=== PATIENT | female | born 1960 | race Caucasian/White ===

== ENCOUNTER 2020-07-25 07:57 | Outpatient (REF) | payer BC, SELFPAY ==
--- NOTE | 2020-07-27 13:22 | MHC.AU.P13 ---
Adult Audiological Evaluation Date of Visit: 07/25/20 Lining Finisher Used: Not Applicable Reason for Appointment: Audiologic re-evaluation due to perceived decrease in hearing ability. Cerumen partially occluding canals for both ears removed without complication prior to testing today. Previous Hearing Test Results: 11/10/2018 [facility] Bilateral severe to profound sensorineural hearing loss with the left ear being poorer at 8000 Hz. Medical History: Medical History: Cancer Medication List: Anastrazolt, Vitamin D Hearing Instrument History- Right Ear: Director Of Donor Relations: Phonak Model: Bitfury Groupeo M 50-13T Serial Number: [id number] Battery Size: 13 Repair Warranty: 04/04/2022 Loss and Damage Warranty: 04/04/2022 Dispensed By: [facility] Date of Fittin01/26/2019 Hearing Instrument History- Left Ear: Director Of Donor Relations: Straatum Processwareak Model: Bitfury Groupeo M 50-13T Serial Number: [id number] Battery Size: 13 Warranty: 04/04/2022 Loss and Damage Warranty: 04/04/2022 Dispensed By: [facility] Date of Fittin01/26/2019 Otoscopy: Right Ear: Unremarkable Left Ear: Unremarkable Tympanometry: Tympanometry performed due to: Right Ear: Not performed at today's visit Left Ear: Not performed at today's visit Hearing Evaluation: Transducer(s) Used: Insert Earphones Bone Conduction Method: Conventional Audiometry Stimuli Used: Pure Tones Right Ear: Description of Hearing: Severe sensorineural hearing loss 250-8000 Hz Left Ear: Description of Hearing: Severe sensorineural hearing loss at 250-4000 Hz with a profound loss at 8000 Hz Speech Recognition Threshold (SRT): Method Used: Monitored Live Voice Stimuli Used: Spondee Words Right Ear: 75 dB HL Left Ear: 80 dB HL Word Discrimination: Method: Monitored Live Voice Word Lists Used: NU-6 Right Ear: 64% at 100 dB HL Left Ear: 68% at 105 dB HL Comparison: Compared to most recent evaluation: Hearing thresholds have decreased 5-15 dB with the decrease being greater for the left ear. Recommendations: Audiological re-evaluation in one year. Hearing aid(s) reprogrammed with updated test results. Diagnosis: Primary Diagnosis: H90.3 Bilateral Sensorineural Hearing Loss Services Performed: Comprehensive Audiological Evaluation (CPT 12455) Signature: Provider: Cassidy Mackey, [facility]
== END 2020-07-25 07:58 | disposition home or self-care (01) ==
LOC: HO.SH 07:57
PROVIDERS: Visit Provider Internal Medicine
DX: H90.3 Sensorineural hearing loss, bilateral (principal)
CPT/HCPCS: 92557

== ENCOUNTER 2020-07-25 09:09 | Outpatient (REF) | payer SELFPAY | END 2020-07-25 09:10 | disposition home or self-care (01) | LOC: HO.HAP 09:09 | PROVIDERS: Visit Provider Internal Medicine | DX: Z46.1 Encounter for fitting and adjustment of hearing aid (principal); H90.3 Sensorineural hearing loss, bilateral | CPT/HCPCS: 92700 ==

== ENCOUNTER 2020-08-22 08:08 | Outpatient (REF) | payer SELFPAY ==
--- NOTE | 2020-08-22 08:59 | MHC.AU.P13 ---
Hearing Instrument Problem Date of Visit: 08/22/20 Right Ear: Hitting Coach: Phonak Model: Whelseeo M 50-13T Serial Number: [id number] Repair Warranty: 04/04/2022 Loss and Damage Warranty: 04/04/2022 Battery Size: 13 Color: [place] Conveyor System Dispatcher: #2 Ultra Power Type of Mold: Phonak C-Shell Skeleton Lock Slim Tip [id number] Type of Wax Guard: CeruStop Left Ear: Hitting Coach: Phonak Model: Audeo M 50-13T Serial Number: [id number] RepairWarranty: 04/04/2022 Loss and Damage Warranty: 04/04/2022 Battery Size: 13 Color: [place] Conveyor System Dispatcher: #2 Ultra Power Type of Mold: Phonak C-Shell Skeleton Lock Type of Wax Guard: CeruStop Follow-Up Summary: Patient dropped off left aid stating cutting in and out on phone and when taking on/off mask - could not replicate in office - sent to [employer] for repair/check. Patient's case in hearing aid repair drawer until aid comes back. Recommendations: Recommendations: Patient will be contacted when materials have arrived. Signature: Provider: PHOEBE Patterson-HIS
== END 2020-08-22 08:09 | disposition home or self-care (01) ==
LOC: HO.HAP 08:08
PROVIDERS: Visit Provider Internal Medicine
DX: Z13.89 Encounter for screening for other disorder (principal)

== ENCOUNTER 2020-09-05 08:06 | Outpatient (REF) | payer SELFPAY | END 2020-09-05 08:07 | disposition home or self-care (01) | LOC: HO.HAP 08:06 | PROVIDERS: Visit Provider Internal Medicine | DX: Z13.89 Encounter for screening for other disorder (principal) ==

== ENCOUNTER 2021-04-02 12:52 | Outpatient (REF) | payer SELFPAY ==
--- NOTE | 2021-04-02 13:19 | MHC.AU.HFU ---
Hearing Instrument Follow-Up- Binaural Date of Visit: 04/02/21 Right Ear: Service Advisor: Phonak Model: Audeo M 50-13T Serial Number: [id number] Repair Warranty: 04/04/2022 Battery Size: 13 Color: [place] Marble Ceiling Installer: #2 Ultra Power Type of Mold: Phonak C-Shell Skeleton Lock Slim Tip #[id number] remake warranty 07/24/2021 Type of Wax Guard: CeruStop Dispensed By: [facility] Date of Fittin01/26/2019 Left Ear: Service Advisor: Phonak Model: Audeo M 50-13T Serial Number: [id number] Repair Warranty: 04/04/2022 Battery Size: 13 Color: [place] Marble Ceiling Installer: #2 Ultra Power Type of Mold: Phonak C-Shell Skeleton Lock [id number] Type of Wax Guard: CeruStop Dispensed By: [facility] Date of Fittin01/26/2019 Follow-Up Summary: Fit the new right skeleton c-shell using the scan on file. Patient reports comfortable fit. Patient reports sounds are muffled. Cleaned both aids, microphones, contacts, and changed wax guard for the left aid. Both amplifying well. Otoscopy shows mostly occluding cerumen in the left ear removed without complication today be NArti Ochoa. Patient changed batteries for both aids and reports improved sound quality. Paid $85.00 for new c-shell. Recommendations: Hearing instrument follow-up or maintenance as needed. Please contact our clinic with any questions or concerns. Diagnosis Code(s): Primary Diagnosis: H90.3 Bilateral Sensorineural Hearing Loss Services Performed: Earmold (Quantity): 1 Signature: Gloria Benjamin [facility] Provider:
== END 2021-04-02 12:53 | disposition home or self-care (01) ==
LOC: HO.HAP 12:52
PROVIDERS: Visit Provider Internal Medicine
DX: Z46.1 Encounter for fitting and adjustment of hearing aid (principal); H90.3 Sensorineural hearing loss, bilateral
CPT/HCPCS: V5264

== ENCOUNTER 2021-09-20 08:26 | Outpatient (REF) | payer SELFPAY | END 2021-09-20 08:27 | disposition home or self-care (01) | LOC: HO.HAP 08:26 | PROVIDERS: Visit Provider Internal Medicine | DX: Z46.1 Encounter for fitting and adjustment of hearing aid (principal); H90.3 Sensorineural hearing loss, bilateral | CPT/HCPCS: 92700 ==

== ENCOUNTER 2022-03-26 07:56 | Outpatient (REF) | payer SELFPAY | END 2022-03-26 07:57 | disposition home or self-care (01) | LOC: HO.HAP 07:56 | PROVIDERS: Visit Provider Internal Medicine | DX: Z46.1 Encounter for fitting and adjustment of hearing aid (principal); H90.3 Sensorineural hearing loss, bilateral | CPT/HCPCS: V5267 ==

== ENCOUNTER 2023-02-12 08:11 | Outpatient (REF) | payer SELFPAY ==
--- NOTE | 2023-02-12 08:54 | MHC.AU.HA3 ---
Hearing Instrument Follow-Up- Binaural Date of Visit: 02/12/23 Right Ear: [place], Model, Color, Serial Number: Mk Brennan M50-13T SN: [id number] Color: [place] Farmer [employer] Grazier Repair Warranty: 04/04/2022 [employer] Loss and Damage Warranty: 04/04/2022 Battery Size: 13 Tobacco Packer/Slim Tube: #2 Ultra Power Earmold/Dome/CShell/SlimTip:Phonak C-Shell Skeleton Lock Slim Tip SN: [id number] Kellie: 07/24/2021 Type of Wax Guard: CeruStop Dispensed By: [facility] Date of Fittin01/26/2019 Left Ear: [place], Model, Color, Serial Number: Mk Brennan M50-13T SN: [id number] Color: [place] Farmer [employer] Grazier Repair Warranty: 04/04/2022 [employer] Loss and Damage Warranty: 04/04/2022 Battery Size: 13 Tobacco Packer/Slim Tube: #2 Ultra Power Earmold/Dome/CShell/SlimTip: Phonak C-Shell Skeleton Lock Slim Tip SN: [id number] Kellie: 07/24/2021 Type of Wax Guard: CeruStop Dispensed By: [facility] Date of Fittin01/26/2019 Follow-Up Summary: Socorro reported that her right hearing aid is not working. Prior to it not working, she reported a crackling/static noise in the hearing aid. Listening check revealed hearing aid extremely weak even after cleaning. Replaced ton container shipper with significant improvement noted in amplification. However, Socorro has a c-shell; therefore, ton container shipper and c-shell will need to be sent to [employer] to replace the ton container shipper. Quoted $150.00. Socorro is going to the [facility] for the weekend for her daughter's wedding. She was agreeable to using a 2P ton container shipper with a power dome temporarily. Reran feedback customer development manager on the right side with the power dome. Some decrease in amplification; however, Socorro reported it was still good sound quality and will get her through the weekend. Practiced insertion/removal. Sent Socorro's ton container shipper and c-shell to [employer] for repair. Recommendations: Patient will be contacted when materials have arrived - Will need appointment to replace ton container shipper/c-shell on hearing aid. Will owe $150.00 for ton container shipper replacement at poultry picking machine tender Diagnosis Code(s): Primary Diagnosis: H90.3 Bilateral Sensorineural Hearing Loss Signature: Provider: Alejandro Galvan, [facility]
== END 2023-02-12 08:12 | disposition home or self-care (01) ==
LOC: HO.HAP 08:11
PROVIDERS: Visit Provider Internal Medicine
DX: Z13.89 Encounter for screening for other disorder (principal)

== ENCOUNTER 2023-03-26 07:50 | Outpatient (REF) | payer SELFPAY | END 2023-03-26 07:51 | disposition home or self-care (01) | LOC: HO.HAP 07:50 | PROVIDERS: Visit Provider Internal Medicine | DX: Z46.1 Encounter for fitting and adjustment of hearing aid (principal); H90.3 Sensorineural hearing loss, bilateral | CPT/HCPCS: V5299 ==

== ENCOUNTER 2023-06-10 07:58 | Outpatient (REF) | payer SELFPAY ==
--- NOTE | 2023-06-10 14:07 | MHC.AU.HA3 ---
Hearing Instrument Follow-Up- Binaural Date of Visit: 06/10/23 Right Ear: Make, Model, Color, Serial Number: Mk Brennan M50-13T SN: [id number] Color: [place] Intervention Specialist Repair Warranty: 04/04/2022 Intervention Specialist Loss and Damage Warranty: 04/04/2022 [facility] Service Plan: Battery Size: 13 Travel Nurse/Slim Tube: #2 Ultra Power Earmold/Dome/CShell/SlimTip:Phonak C-Shell Skeleton Lock Slim Tip SN: [id number] Kellie: 05/25/2023 Type of Wax Guard: CeruStop Dispensed By: [facility] Date of Fittin01/26/2019 Left Ear: Make, Model, Color, Serial Number: Mk Brennan M50-13T SN: [id number] Color: [place] Intervention Specialist Repair Warranty: 04/04/2022 Intervention Specialist Loss and Damage Warranty: 04/04/2022 [facility] Service Plan: Battery Size: 13 Travel Nurse/Slim Tube: #2 Ultra Power Earmold/Dome/CShell/SlimTip: Phonak C-Shell Skeleton Lock Slim Tip SN: [id number] Kellie: 07/24/2021 Type of Wax Guard: CeruStop Dispensed By: [facility] Date of Fittin01/26/2019 Follow-Up Summary: Socorro reports overall dissatisfaction with her hearing aids. She states she has been quite disappointed by them and feels they are the worst hearing aids she's ever had. She currently experiences a muffled quality to speech and finds herself constantly needing people to repeat themselves, which is a major issue for her at work where her desk is in a noisy environment. Socorro is worried she is going to start losing people in her life because they do not want to deal with her hearing loss. She is hoping to make these hearing aids work better but is also considering an updated hearing test and trial with new hearing aids through [facility]. Discussed trying a different neurologist should she choose to try new hearing aids as this is her first experience with Phonak and has been very unhappy. Cleaned hearing aids, no significant issues found, listening check OK. Connected aids and reprogrammed to DSL and increased overall gain; Socorro reported significant improvement understanding me even while wearing my mask. We discussed the Phonak silver as an option to try at work, but she would prefer to try the new settings first before adding anything else in. She will assess these changes and contact us for further adjustments as needed. Recommendations: Recommendations: Patient will call if problems persist. Recommendations: Return for updated audiogram. Diagnosis Code(s): Primary Diagnosis: H90.3 Bilateral Sensorineural Hearing Loss Signature: Provider: Cassidy Evangelista, CCC-A
== END 2023-06-10 07:59 | disposition home or self-care (01) ==
LOC: HO.HAP 07:58
PROVIDERS: Visit Provider Internal Medicine
DX: Z46.1 Encounter for fitting and adjustment of hearing aid (principal); H90.3 Sensorineural hearing loss, bilateral
CPT/HCPCS: V5267

== ENCOUNTER 2023-08-10 07:57 | Outpatient (REF) | payer SELFPAY | END 2023-08-10 07:58 | disposition home or self-care (01) | LOC: HO.HAP 07:57 | PROVIDERS: Visit Provider Internal Medicine | DX: Z13.89 Encounter for screening for other disorder (principal) ==

== ENCOUNTER 2023-12-09 07:52 | Outpatient (REF) | payer BC, SELFPAY ==
--- NOTE | 2023-12-09 09:51 | MHC.AU.HA1 ---
Hearing Aid Evaluation Date of Visit: 12/09/23 Historical Information: Description of Hearing: Severe SNHL right ear, severe to profound SNHL right ear Current personal amplification information, if applicable: Phonak Audeo M50 13T Summary: Socorro is here for wax removal (see note) and impressions. Completed without incident. Socorro has changed her mind about her hearing aid selection, as she very much wants direct Bluetooth compatibility for phone calls, does not want to purchase an iPhone at this time if she can avoid it. Understands this means staying with the same stockroom associate, agrees to larger size for more power as previously discussed with Fabricio. She elected to order Phonak Prema L70 UP in [facility] for compatibility with her Android [employer] Play. She is aware of the trial period and will consider Oticon Xceed UP BTEs with Connect Clip if she is not satisfied with Phonak aids. Will send recommendations to Suleiman at [facility]. Hearing Aid Prescription: Based on the individual?s shared listening needs, communication environments, dexterity, desire for connectivity, and personal preferences, the following prescription for amplification has been made: Right ear: Make, Model, Color: Phonak Prema L70 UP Battery Size: 675 Revenue Enforcement Agent/Slim Tube: Type of Earmold/Dome/CShell/SlimTip: silicone shell Left ear: Left ear prescription to be same as Right Hearing Aid above: Make, Model, Color: Phonak Prema L70 UP Battery Size: 675 Revenue Enforcement Agent/Slim Tube: Type of Earmold/Dome/CShell/SlimTip: silicone shell Plan of Care: Patient wishes to purchase hearing aids as prescribed Action Taken/Action Needed: Prior authorization to be requested by [facility] Hearing Instrument Fitting to be scheduled when materials arrive Primary Diagnosis: H90.3 Bilateral Sensorineural Hearing Loss Signature: Provider: Cassidy Evangelista, CCC-A
== END 2023-12-09 07:53 | disposition home or self-care (01) ==
LOC: HO.HAP 07:52
PROVIDERS: Visit Provider Internal Medicine
DX: Z46.1 Encounter for fitting and adjustment of hearing aid (principal); H90.3 Sensorineural hearing loss, bilateral
CPT/HCPCS: 92700

== ENCOUNTER 2024-02-24 07:53 | Outpatient (REF) | payer SELFPAY ==
--- NOTE | 2024-02-24 09:36 | MHC.AU.HA2 ---
Hearing Instrument Fitting- Adult- Binaural Date of Visit: 02/24/24 Hearing Instruments Dispensed: Right Ear: Make, Model, Color, Serial Number: Mk Lloyd L70-UP SN: [id number] Color: Sand[place]wood [employer] Repair Warranty: 03/12/2027 [employer] Loss and Damage Warranty: 03/12/2027 [facility] Service Plan: 02/23/2025 Battery Size: 675 Earmold/Dome/CShell/SlimTip: James Silicone FS SN: [id number] Kellie: 05/11/2024 Left Ear: Make, Model, Color, Serial Number: Mk Jeronimoida L70-UP SN: [id number] Color: [place] [employer] Repair Warranty: 03/04/2027 [employer] Loss and Damage Warranty: 03/04/2027 [facility] Service Plan: 02/23/2025 Battery Size: 675 Earmold/Dome/CShell/SlimTip: James Silicone FS SN: [id number] Kellie: 05/11/2024 Summary of Fitting: Ran feedback analyzer. Could not perform real ear measures due to technical difficulties - need to do at follow up. Overall volume softer compared to old hearing aids at initial fit settings. Increased overall gain to 110%. Will use VC as needed. Briefly reviewed care and use. As a long-time hearing aid user, Socorro was familiar with general maintenance. Paired to cellphone, no interest in silver at this time. Recommendations: A hearing instrument follow-up was scheduled. Diagnosis Code(s): Primary Diagnosis: H90.3 Bilateral Sensorineural Hearing Loss Signature: Provider: Alejandro Galvan, [facility]
== END 2024-02-24 07:54 | disposition home or self-care (01) ==
LOC: HO.HAP 07:53
PROVIDERS: Visit Provider Internal Medicine
DX: Z46.1 Encounter for fitting and adjustment of hearing aid (principal); H90.3 Sensorineural hearing loss, bilateral
CPT/HCPCS: V5011; V5020; V5160; V5261; V5264; V5275

== ENCOUNTER 2024-04-14 08:10 | Outpatient (REF) | payer SELFPAY | END 2024-04-14 08:11 | disposition home or self-care (01) | LOC: HO.HAP 08:10 | PROVIDERS: Visit Provider Internal Medicine | DX: Z13.89 Encounter for screening for other disorder (principal) ==

== ENCOUNTER 2024-10-17 14:55 | Outpatient (REF) | payer SELFPAY ==
--- OUTSIDE RECORDS SUMMARY | 2024-10-17 14:59 | XMS_ITS | Data Portability ---
Author Organization [place] - [facility], Allergy Address [address] [address] Care Team Providers Care Customs Patrol Officer Name Role Phone RUDDY FRANCISCO Primary Care Provider Assessment Encounter Date Assessment Date Assessment LastModified by Organization Details LastModified Time 04/13/2024 04/13/2024 63-year-old female presents for cerumen removal. Cerumen removed bilaterally. TMs normal to inspection. Follow-up in 6 months for repeat procedure. nydia Not available 04/13/2024 14:36:55 Plan of Treatment Reminders Order Date Submit Date Provider Last Modified By Organization Details Last Modified Time Details Appointments Establish ed 15 2024 09:15A M VICKY LEWIS PA-C Not available Not available Not available Lab None recorded. Referral None recorded. Procedures None recorded. Surgeries None recorded. Imaging None recorded. Medication Orders None recorded. Patient TargetsNo targets recorded. Patient InstructionsNo instructions recorded. Reason for Referral None Reported. Problems Name Problem SNOMED Code Status Onset Date Resolution Date Notes Provider Name and Address Organization Details Recorded Time Impacted cerumen of bilateral ears 76159390240 84478 Active 2022 Impacted cerumen, bilateral ; Note: Date Diagnosed : 10/15/2022 3:51 PM (H61.23) Not Available [facility] 4 03:21:06 Abnormal auditory perceptio n 41905656 Active 2022 Other abnormal auditory perceptio ns, bilateral ; Note: Date Diagnosed : 10/15/2022 3:52 PM (H93.293) Not Available [facility] 4 03:21:07 Problem Notes None recorded. Procedures Surgical History Date Name Laterality Status Provider Name and Address Organization Details Recorded Time 4 Cerumen removal without microscope bilat completed VICKY LEWIS PA-C [address] [facility],[place] [address], [place], [address], [facility] - [facility] 04/13/2024 14:35:49 Imaging Results None recorded. Procedure Notes None recorded. Medical Equipment None Reported. Allergies Allergen ID Allergen Name Allergen Category Reaction Reaction Severity Criticality Documentation Date Start Date Code Code System Note Provider Name and Address Organization Details Recorded Time 437247 aspirin medicatio n nausea Not available Not available 10/20/2023 1191 RxNorm React ion: Upset stoma ch; Not Available [facility] 4 01:15:05 Medications Name Sig Start Date Stop Date Status Note LastModified by Organization Details LastModified Time anastrozole 1 mg tablet 04/13 completed Medication ID: [id number] Mark nd Name: anastrozol e Send Method: E-Prescrib ed Subs Allowed: subs OK Medicat ionGeneric Name: anastrozol e Not Available Not Available Not Available fluconazole 150 mg tablet 04/13 completed Medication ID: [id number] Mark nd Name: fluconazol e Send Method: E-Prescrib ed Subs Allowed: subs OK Medicat ionGeneric Name: fluconazol e Not Available Not Available Not Available amlodipine 2.5 mg tablet 04/13 completed Medication ID: [id number] Mark nd Name: amlodipine Send Method: E-Prescrib ed Subs Allowed: subs OK Medicat ionGeneric Name: amlodipine Not Available Not Available Not Available amlodipine 5 mg tablet active Not Available Not Available Not Available warfarin 2 mg tablet active Not Available Not Available No t Available hydrochloro thiazide 25 mg tablet active Not Available Not Available No t Available doxycycline hyclate 100 mg tablet 04/13 completed Medication ID: [id number] Mark nd Name: doxycyclin e hyclate Se nd Method: E-Prescrib ed Subs Allowed: subs OK Medicat ionGeneric Name: doxycyclin e hyclate Not Available Not Available Not Available metoprolol tartrate 25 mg tablet active Not Available Not Available No t Available Vitals Date Recorded Body height Body mass index (BMI) Body weight Provider Name and Address Organization Details Last Updated DateTime 04/13/2024 170.18 cm 21.7 kg/m2 75956.54 g Vickie Linfelicia [place] - [facility] 04/13/2024 14:00:21 Social History None recorded. Functional Status None recorded. Mental Status None recorded. Family History Nothing Reported. Medical History No medical history recorded. Gynecological HistoryNo gynecological history recorded. Obstetrics History GPAL:G 0 P 0 0 0 0 Past Encounters Encounter ID Performer Location Encounter Start Date Encounter Closed Date Diagnosis/Indication Diagnosis SNOMED-CT Code Diagnosis ICD10 Code Diagnosis Note [id number] VIKCY LEWIS PA-C [facility] [address] [address] 04/13/2024 13:51:20 04/13/2024 14:12:08 Impacted cerumen of bilateral ears [id number] H61.23 Health Concerns Section Related Observation LastModified by Organization Detai ls LastModified Time None Recorded Concern Status LastModified by Organization Details LastModified Time None Recorded Advance Directives Directive None Recorded Payers Insurance Date Sequence Insurance Name Policy Number Policy Arreaga Covered Member ID Arreaga Member ID Guarantor Name 10/07/2024 1 [facility] [id number] 1 [place] [id number] [place] [address] Notes Date Note Type Note Provider Name and Address Organization Details Recorded Time 04/13/2024 text/html 63-year-old female presents for cerumen removal. Has bilateral hearing aids. No acute changes since her last visit. CARMELO MARINELLI MD [address] [place] [address], [place], [address], [facility] - [facility] 04/13/2024 15:53:32 OBGyn Episode No OBEpisode recorded.
--- NOTE | 2024-10-17 15:43 | MHC.AU.HA3 ---
Hearing Instrument Follow-Up- Binaural Date of Visit: 10/17/24 Right Ear: [place], Model, Color, Serial Number: Mk Lloyd L70-UP SN: [id number] Color: [place] Distribution Operations Supervisor Repair Warranty: 03/12/2027 Distribution Operations Supervisor Loss and Damage Warranty: 03/12/2027 [facility] Service Plan: 02/23/2025 Battery Size: 675 Earmold/Dome/CShell/SlimTip:James Silicone FS SN: [id number] Kellie: 05/11/2024 Dispensed By: [facility] Date of Fittin02/24/2024 Left Ear: [place], Model, Color, Serial Number: Mk Lloyd L70-UP SN: [id number] Color: [place] Distribution Operations Supervisor Repair Warranty: 03/04/2027 Distribution Operations Supervisor Loss and Damage Warranty: 03/04/2027 [facility] Service Plan: 02/23/2025 Battery Size: 675 Earmold/Dome/CShell/SlimTip: James Silicone FS SN: [id number] Kellie: 05/11/2024 Dispensed By: [facility] Date of Fittin02/24/2024 Follow-Up Summary: Socorro reports right VAZQUEZ stopped working suddenly a couple days ago. Cleaned and checked both aids. Ran through dehumidifier. Cleaned earmolds. Replaced tubing. Listening check positive left. Right aid . Set up loaner for right side w/ independent VC. Socorro noted her right ear has been sore for a couple days, pointed out a spot in padilla, otoscopy shows small raised bump, possible pimple. Check up on it when Socorro returns to pharmacy picking tech her hearing aid. Socorro noted trouble hearing at work, feeling that hearing aids cut out when she enters the noisy machine floor. Advised settings can be checked and background noise management may need adjusting when she comes to pharmacy picking tech her hearing aid. Recommendations: Recommendations: Patient will be contacted when materials have arrived. Diagnosis Code(s): Primary Diagnosis: H90.3 Bilateral Sensorineural Hearing Loss Signature: Provider: Alejandro Hernandez, [facility]
== END 2024-10-17 14:56 | disposition home or self-care (01) ==
LOC: HO.HAP 14:55
PROVIDERS: Visit Provider Internal Medicine
DX: Z13.89 Encounter for screening for other disorder (principal)

== ENCOUNTER 2024-11-01 07:50 | Outpatient (REF) | payer SELFPAY ==
--- OUTSIDE RECORDS SUMMARY | 2024-11-01 07:52 | XMS_ITS | Clinical Summary ---
Author Organization [address] Address [address] [place] [phone] Phone Care Team Providers Care Shot Blaster Name Role Phone Sofi Ponce NP Primary Care Provider [phone] Allergies Active Allergy Reactions Criticality Noted Date Comments Aspirin 05/09/2020 Upset stomach Medications cholecalciferol (VITAMIN D-3) 50 mcg (2,000 unit) tablet Take 1 tablet (2,000 Units total) by mouth 1 (one) time each day. Active hydroCHLOROthiazi de (HYDRODIURIL) 25 mg tablet Take 1 tablet (25 mg total) by mouth 1 (one) time each day. 4 Active metoprolol tartrate (LOPRESSOR) 25 mg tablet Take 1 tablet (25 mg total) by mouth 2 (two) times a day. 4 Active warfarin (COUMADIN) 2 mg tablet TAKE 1-2 TABLETS BY MOUTH DAILY DIRECTED BY PVCA 90 tablet 2 5 Active losartan (Cozaar) 25 mg tabletIndications :Primary hypertension Take 1 tablet (25 mg total) by mouth 1 (one) time each day. 90 each 3 5 10/06/19 26 Active Active Problems Problem Noted Date Diagnosed Date PAF (paroxysmal atrial fibri llation) (CMS/HCC V24, CMS/HCC V28) 05/04/2024 Assessment & Plan (08/10/2024 12:50 PM EST): Patient with history of PAF relatively asymptomatic at this time chronically anticoagulated cannot afford novel agents no bleeding issues continue to monitor and rate control Paroxysmal atrial fibrillation ([facility] V24, [facility] V28) 09/29/2023 Overview (05/16/2024): Last Assessment & Plan: Patient has history of paroxysmal atrial fibrillation. She is on metoprolol for rate control. Her [id number] score is 3 representing a 3.2% risk for thromboembolism. She continues on warfarin for anticoagulation. We discussed recent fluctuations in her INR level and potential interactions with different higher vitamin K foods. Continue with medical therapies as prescribed. Hypertension 09/13/2020 Overview (05/16/2024): Last Assessment & Plan: Blood pressure is under excellent control with a reading today of 128/66. She will continue with amlodipine and hydrochlorothiazide as prescribed. Assessment & Plan (10/05/2024 4:04 PM EDT): Edema lower extremities is resolved after discontinuation of amlodipine. Will restart 25 mg of losartan for blood pressure management. The patient will have lab work done to check a basic metabolic profile and potassium level in 1 week Orders: losartan (Cozaar) 25 mg tablet; Take 1 tablet (25 mg total) by mouth 1 (one) time each day. Basic metabolic panel; Future Assessment & Plan (08/10/2024 12:50 PM EST): Patient has some edema in the left ankle and also on the right this could be secondary to amlodipine. Stop amlodipine for 2 weeks if the edema gets better then she will come in and have me adjust her blood pressure and medical therapy since her pressure will probably go up. If the edema does not correct then she is then need a venous ultrasound for a venous insufficiency study of the lower extremities and go back on the amlodipine. She will let me know what happens during this 2-week trial. Off the amlodipine Palpitations 05/09/2020 Overview (05/16/2024): Last Assessment & Plan: Patient denies any recurrent palpitations at this time. She is going to have a sleep study in the near future. Breast cancer ([facility] V24, [facility]/HCC V28) 020 Overview (05/16/2024): Radiation, lumpectomy Heart murmur 05/08/2020 Migraine 05/08/2020 OA (osteoarthritis) of hip 05/08/2020 Vitamin D deficiency 05/08/2020 Pericarditis 04/21/2020 Overview (05/16/2024): Last Assessment & Plan: Patient denies any recurrent symptoms of pericarditis. Encounters Date Type Department Care Team Description 10/24/2024 Anticoagulation - Warfarin Visit [facility] [address] [place] [phone] Salomon Tarango MD PAF (paroxysmal atrial fibrillation) ([facility] V24, [facility] V28) (Primary Dx) 10/20/2024 Anticoagulation - Warfarin Visit [facility] [address] [place] [phone] Salomon Tarango MD PAF (paroxysmal atrial fibrillation) ([facility] V24, [facility] V28) (Primary Dx) 10/05/2024 7:50 AM EDT Office Visit [facility] [address] [place] [address] Ashish Avila MD Primary hypertension (Primary Dx) 09/29/2024 Anticoagulation - Warfarin Visit [facility] [address] [place] [address] Salomon Tarango MD PAF (paroxysmal atrial fibrillation) ([facility] V24, [facility] V28) (Primary Dx) 09/29/2024 Telephone [facility] [address] [place] [address] Ashish Avila MD Medication 09/15/2024 Anticoagulation - Warfarin Visit [facility] [address] [place] [address] Salomon Tarango MD PAF (paroxysmal atrial fibrillation) ([facility]/HCC V24, CMS/HCC V28) (Primary Dx) 09/08/2024 Anticoagulation - Warfarin Visit [facility] [address] [place] [phone] Salomon Tarango MD PAF (paroxysmal atrial fibrillation) ([facility]/HCC V24, CMS/HCC V28) (Primary Dx) 09/01/2024 Anticoagulation - Warfarin Visit [facility] [address] [place] [address] Salomon Tarango MD PAF (paroxysmal atrial fibrillation) ([facility]/HCC V24, CMS/HCC V28) (Primary Dx) 08/29/2024 Anticoagulation - Warfarin Visit [facility] [address] [place] [address] Ashish Avila MD PAF (paroxysmal atrial fibrillation) ([facility]/HCC V24, CMS/HCC V28) (Primary Dx) 08/10/2024 8:20 AM EST Office Visit [facility] [address] [place] [address] Ashish Avila MD PAF (paroxysmal atrial fibrillation) ([facility]/HCC V24, CMS/HCC V28) (Primary Dx); Primary hypertension from Last 3 Months Immunizations Name Administration Dates Next Due Influenza Quadravalent, MDCK , 0.5ml, preservative free (Flucelvax) 6mo and older 03/17/2017 Influenza trivalent, with pr eservative (Fluzone; Afluria) 6mo and older 03/17/2016 Zoster recombinant (Shingrix) 19yo and older ,11/21/2022 Surgical History Surgery Date Site/Laterality Comments BREAST LUMPECTOMY PROCEDURE: HISTORICAL BREAST LUMPECTOMY; COMMENT: breast cancer COLONOSCOPY 06/08/2014 - 06/07/2015 OTHER SURGICAL HISTORY 2017 PROCEDURE: MAMMOGRAM COLONOSCOPY 08/06/2020 - 09/05/2020 3-year recall/poor prep COLONOSCOPY 06/08/2010 - 06/07/2011 Family History Medical History Relation Name Comments Coronary artery disease Brother 1 Hypertension Brother 1 Coronary artery disease Brother 2 Colon polyps Father Coronary artery disease Mother Hypertension Mother Colon cancer Neg Hx Relation Name Status Comments Brother 1 Brother 2 Father Mother Social History Tobacco Use Types Packs/Day Years Used Date Smoking Tobacco: Former Cigarettes Q uit: 06/08/1993 Smokeless Tobacco: Never Alcohol Use Standard Drinks/Week Comments Yes 0 (1 standard drink = 0.6 oz pur e alcohol) 3 times a year Comments Unknown Sex and Gender Information Value Date Recorded Sex Assigned at Not on file Legal Sex Female 5:47 PM EST Gender Identity Not on file Sexual Orientation Not on file Obstetrics History Last Filed Vital Signs Vital Sign Reading Time Taken Comments Blood Pressure 132/70 10/05/2024 7:54 AM EDT Pulse 62 10/05/2024 7:54 AM EDT Temperature - - Respiratory Rate - - Oxygen Saturation 97% 10/05/2024 7:54 AM EDT Inhaled Oxygen Concentration - - Weight 64.1 kg (141 lb 4.8 oz) 10/05/2024 7:54 A M EDT Height 170.2 cm (5' 7 ) 10/05/2024 7:54 AM EDT Body Mass Index 22.13 10/05/2024 7:54 AM EDT Plan of Treatment Upcoming Encounters Date Type Department Care Team (Late st Contact Info) Description 04/06/2025 7:40 AM EDT Office Visit [facility] [address] [place] [phone] Maria Teresa Calderon NP [address] [place] [address] [address] [place] [address] Health Maintenance Due Date Last Done Comments Breast Cancer Screening 1960 DTaP,Tdap,and Td Vaccines (1 - Tdap) 1977 Pneumococcal Vaccine: 50+ Years (1 of 2 - PCV) 1977 Cholesterol Screening (Lipid Panel) 05/17/2022 Depression Screening 05/17/2022 Hepatitis C Screening 05/17/2022 Osteoporosis Screening (Bone Density Screening) 05/17/2022 Social Influencers of Health Screening 05/17/2022 Hypertension/CHF/CAD Annual BMP Blood Test 05/18/2022 Falls Risk Assessment 09/21/2023 COVID-19 Vaccine ( season) 2024 05/01/2023, 05/18/2022, 04/12/2021, Additional history exists Influenza Vaccine (Season Ended) 2025 03/17/2017, 03/17/2016, 03/24/2014 RSV Immunization Adult Patients (1 - 1-dose 75+ series) 2033 Colorectal Cancer Screening: Colonoscopy 07/25/2034 07/25/2024, 05/31/2024 Zoster Vaccines Completed 02/27/2023, 11/21/2022 HIB Vaccines Aged Out No longer eligi ble based on patient's age to complete this topic HPV Vaccines Aged Out No longer eligi ble based on patient's age to complete this topic Hepatitis A Vaccines Aged Out No long er eligible based on patient's age to complete this topic Hepatitis B Vaccines Aged Out No long er eligible based on patient's age to complete this topic IPV Vaccines Aged Out No longer eligi ble based on patient's age to complete this topic MMR Vaccines Aged Out No longer eligi ble based on patient's age to complete this topic Meningococcal ACWY Vaccine Aged Out N o longer eligible based on patient's age to complete this topic Meningococcal B Vaccine Aged Out No l onger eligible based on patient's age to complete this topic RSV Immunization Patients Under 20 months Aged Out No longer eligible based on patient's age to complete this topic Varicella Vaccines Aged Out No longer eligible based on patient's age to complete this topic Procedures Procedure Name Priority Date/Time Associated Diagnosis Comments PROTHROMBIN TIME WITH INR Routine 10/24/2024 7:33 AM EDT PAF (paroxysmal atrial fibrillation) (CMS/HCC) [I48.0] PROTHROMBIN TIME WITH INR Routine 10/20/2024 7:29 AM EDT PAF (paroxysmal atrial fibrillation) (CMS/HCC) [I48.0] PROTHROMBIN TIME WITH INR Routine 09/29/2024 10:38 AM EDT PAF (paroxysmal atrial fibrillation) (CMS/HCC) [I48.0] PROTHROMBIN TIME WITH INR Routine 09/15/2024 7:36 AM EDT PAF (paroxysmal atrial fibrillation) (CMS/HCC) [I48.0] PROTHROMBIN TIME WITH INR Routine 09/08/2024 8:36 AM EDT PAF (paroxysmal atrial fibrillation) (CMS/HCC) [I48.0] PROTHROMBIN TIME WITH INR Routine 09/01/2024 7:35 AM EDT PAF (paroxysmal atrial fibrillation) (CMS/HCC) [I48.0] PROTHROMBIN TIME WITH INR Routine 08/29/2024 7:41 AM EDT PAF (paroxysmal atrial fibrillation) (CMS/HCC) [I48.0] EXTERNAL COLONOSCOPY REPORT Routine 07/25/2024 4:54 PM EST from Last 3 Months or Most Recently Relevant to Health Maintenance Results * (ABNORMAL) Prothrombin time with INR (10/24/2024 7:33 AM EDT) Only the most recent of7 resultswithin the time period is included. Protime 33.3(H) 10.6 - 13.9 sec LAB COAGULATION METHOD 10/24/2024 10:20 AM EDT [facility] INR 2.7 LAB COAGULATION METHOD 10/24/2024 10:20 AM EDT [facility] Blood Venous blood specimen / Unknown Venipuncture / Unknown 10/24/2024 7:33 AM EDT 10/24/2024 7:33 AM EDT Salomon Tarango MD LAB BLOOD ORDERABLES F inal Result [facility] [address] [place] [address], [place] [phone] * External Colonoscopy Report (07/25/2024 4:54 PM EST) Anatomical Region Laterality Modality Endoscopy Historical Provider MD DOVE~PROCEDURE ORDERABLES F inal Result from Last 3 Months or Most Recently Relevant to Health Maintenance Insurance [facility] Care Teams Shot Blaster Relationship Specialty Start Date End Date Sofi Ponce NP [address] [place] [address] PCP - General 06/17/22
--- NOTE | 2024-11-01 08:33 | MHC.AU.HA3 ---
Hearing Instrument Follow-Up- Binaural Date of Visit: 11/01/24 Right Ear: Make, Model, Color, Serial Number: Mk Lloyd [id number]-[id number] SN: [id number] Color: [place] [employer] Repair Warranty: 03/12/2027 [employer] Instructor Loss and Damage Warranty: 03/12/2027 [facility] Service Plan: 02/23/2025 Battery Size: 675 Earmold/Dome/CShell/SlimTip:James Silicone FS SN: [id number] Kellie: 05/11/2024 Dispensed By: [facility] Date of Fittin02/24/2024 Left Ear: Make, Model, Color, Serial Number: Mk Lloyd [id number]-[id number] SN: [id number] Color: [place] [employer] Repair Warranty: 03/04/2027 [employer] In[employer] Loss and Damage Warranty: 03/04/2027 [facility] Service Plan: 02/23/2025 Battery Size: 675 Earmold/Dome/CShell/SlimTip: James Silicone FS SN: [id number] Kellie: 05/11/2024 Dispensed By: [facility] Date of Fittin02/24/2024 Follow-Up Summary: Picked up repaired hearing aid. Dropped off loaner. Adjusted noise management as previously discussed- backing off noise reduction in all automatic programs due to perception of hearing aids dropping out in noisy environment. Re-paired aids with phone. Recommendations: Recommendations: Hearing instrument follow-up or maintenance as needed. Diagnosis Code(s): Primary Diagnosis: H90.3 Bilateral Sensorineural Hearing Loss Signature: Provider: Alejandro Hernandez, [facility]
== END 2024-11-01 07:51 | disposition home or self-care (01) ==
LOC: HO.HAP 07:50
PROVIDERS: Visit Provider Internal Medicine
DX: Z13.89 Encounter for screening for other disorder (principal)

== ENCOUNTER 2025-03-16 07:48 | Outpatient (REF) | payer SELFPAY | END 2025-03-16 07:49 | disposition home or self-care (01) | LOC: HO.HAP 07:48 | PROVIDERS: Visit Provider Internal Medicine | DX: Z13.89 Encounter for screening for other disorder (principal) ==